=== PATIENT | female | born 1970 | race Two or more races ===

== ENCOUNTER 2017-02-04 13:58 | Emergency (ER) | payer BC, SELFPAY ==
[~2017-02-04 13:58] MED LIST: BACTRIM DS TAB1 EAC2; CLEOCIN HCL300 M1 PO; IBUPROFEN800 MG PO; INTEGRA CAPSUL1 EACH PO; NO HOME MEDICATION XX; OXYCODONE/APAP PO; PRENATE PLUS T1 EAC1 PO; VITAMIN B-121000 MCG PO; [UNRECOGNIZED DRUG - SUPPLY] MC
== END 2017-02-04 13:59 ==
LOC: EDMED 13:58
DX: N61.0 Mastitis without abscess (principal); Z90.89 Acquired absence of other organs; Z98.890 Other specified postprocedural states